=== PATIENT | female | born 1980 | race Caucasian/White ===

== ENCOUNTER 2019-10-12 21:16 | Emergency (ER) | payer BC, OTHER ==
[~2019-10-12] VITALS: Ht 167.6 cm; Wt 69.9 kg
[2019-10-12 22:00] LABS: *URINE HCG, QUAL NEGATIVE (NEGATIVE)
[2019-10-12] MEDS ORDERED: METOCLOPRAMIDE HCL 10 MG/2 ML VIAL IV ONE (22:30)
[2019-10-12] MEDS ORDERED: IV NORMAL SALINE 1000 ML BAG IV ONE (22:30)
[2019-10-12] MEDS ORDERED: METOCLOPRAMIDE HCL 10 MG/2 ML VIAL ONE (22:46)
[2019-10-12 22:59] LABS: BASOPHILS # (AUTO) 0.1 K/uL (0.0-8.0); BASOPHILS % (AUTO) 0.6 % (0.0-2.0); EOSINOPHILS # (AUTO) 0.1 K/uL (0.0-0.7); EOSINOPHILS % (AUTO) 0.5 % (0.0-7.0); HEMOGLOBIN 13.7 g/dL (10.9-14.3); LYMPHOCYTES # (AUTO) 0.9 K/uL (20.0-40.0); LYMPHOCYTES % (AUTO) 8.3 % (20.5-51.5); MEAN CORPUSCULAR HEMOGLOBIN 31.5 uug (24.7-32.8); MEAN CORPUSCULAR HGB CONC 33 g/dL (32.3-35.6); MEAN CORPUSCULAR VOLUME 94.5 fL (75.5-95.3); MONOCYTES # (AUTO) 1.6 K/uL (2.0-10.0); MONOCYTES % (AUTO) 14.1 % (0.0-11.0); NEUTROPHILS # (AUTO) 8.4 K/uL (1.8-8.9); NEUTROPHILS % (AUTO) 76.5 % (38.5-71.5); PLATELET COUNT (AUTO) 215 K/uL (179-408); RED BLOOD CELL COUNT(AUTO) 4.34 MIL/uL (3.63-4.92)
[2019-10-12 23:06] LABS: CREATININE 0.6 mg/dL (0.6-1.3)
[2019-10-12 23:20] LABS: BILIRUBIN,DIRECT 0.1 mg/dL (0.0-0.2); BILIRUBIN,TOTAL 0.3 mg/dL (0.2-1.0); TOTAL PROTEIN, SERUM 8.2 g/dL (6.4-8.2)
[2019-10-12 23:43] LABS: *BILIRUBIN,URIN NEGATIVE (NEGATIVE); *BLOOD, URINE 2+ (NEGATIVE); *CLARITY,URINE CLEAR (CLEAR); *COLOR,URINE YELLOW (YELLOW); *KETONES,URINE NEGATIVE (NEGATIVE); *UROBILINOGEN,URINE 0.2 E.U./dl (NORMAL); LEUKOCYTE ESTERASE ,URINE NEGATIVE (NEGATIVE); NITRITE, URINE NEGATIVE (NEGATIVE); UGLUCOSE NEGATIVE (NEGATIVE)
[2019-10-13] LABS: BACTERIA,URINE NONE SEEN /HPF (NONE SEEN); SQUAMOUS EPITHELIAL CELL,UR MODERATE /HPF (NONE SEEN)
[2019-10-13 00:01] LABS: MUCUS,URINE MODERATE /LPF (0-FEW)
[2019-10-13] MEDS ORDERED: IBUPROFEN 800 MG TABLET ONE (00:27)
[2019-10-13] MEDS ORDERED: IV NS 1000 ML 1,000 ML IV ONE (00:30)
[2019-10-13] MEDS ORDERED: OSELTAMIVIR PHOSPHATE 75 MG CAPSULE PO ONE (00:30)
[2019-10-13] MEDS ORDERED: IBUPROFEN 800 MG TABLET PO ONE (00:30)
[2019-10-13] MEDS ORDERED: OSELTAMIVIR PHOSPHATE 75 MG CAPSULE ONE (00:31)
--- NOTE | 2019-10-13 01:40 | NUR ---
Patient states "I feel better now."
--- NOTE | 2019-10-13 01:55 | NUR ---
IV removed. Catheter intact and site benign. Pressure and 4x4 gauze applied to site. No bleeding noted.
--- NOTE | 2019-10-13 02:01 | NUR ---
Patient discharged to home in stable conditon with taking patient home. Written and verbal after care instructions given. Patient verbalizes understanding of instructions. Walked out of ER with no distress noted.
[2019-10-13 02:02] VITALS: BP 112/66
== END 2019-10-13 02:02 | disposition home or self-care (01) ==
LOC: ER 21:18
DX: J06.9 Acute upper respiratory infection, unspecified (principal); R11.0 Nausea
CPT/HCPCS: 36415; 71045; 80048; 80076; 81000; 81001; 83605; 83690; 84703; 85025; 87040 ×2; 87400; 93005; 96374; 99284; J2765; A4663; J7030